=== PATIENT | female | born 1960 | race African-American/Black ===

== ENCOUNTER 2018-12-18 22:13 | Emergency (ER) | payer MEDICAID ==
[~2018-12-18] VITALS: Ht 162.6 cm; Wt 107.5 kg
--- NOTE | 2018-12-18 22:13 | NUR ---
PT SAMANTHA BLS. TAKEN TO BED 6
[2018-12-18 22:20] VITALS: BP 133/79
--- NOTE | 2018-12-18 22:20 | NUR ---
PT BIBA C/O LEFT HIP PAIN. PT AMBULATED, PT STATES PAIN 10/10 LEFT HIP PAIN X3 WEEKS, NON-RADIATING; DENIES TRAUMA OR INJURY; MUSCLE TIGHTNESS TO SIGHT, NO REDNESS OR SWELLING. STRONG DORSAL PEDIAL PUSLES WNL BL. PT IN BED; SAFETY PRECAUTIONS IN PLACE. PENDING ERMD EVAL. PMH: HTN, DM
--- NOTE | 2018-12-18 22:42 | NUR ---
Dr. Han examining patient.
[2018-12-18] MEDS ORDERED: IBUPROFEN 600 MG TAB PO ONE (22:45)
--- NOTE | 2018-12-18 23:15 | NUR ---
BLANKET AND COMFORT MEASURES PROVIDED AT THIS TIME.
--- NOTE | 2018-12-19 | NUR ---
Patient discharged with v/s stable. Written and verbal after care instructions given and explained. Patient alert, oriented and verbalized understanding of instructions. Ambulatory with steady gait. All questions addressed prior to discharge. ID band removed. Patient advised to follow up with PMD. Rx of IBUPROFEN WAS given. Patient educated on indication of medication including possible reaction and side effects. Opportunity to ask questions provided and answered.
[2018-12-19 00:05] VITALS: BP 131/78
--- NOTE | 2018-12-19 00:21 | NUR ---
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
== END 2018-12-19 | disposition home or self-care (01) ==
LOC: MED 22:13
DX: M79.10 Myalgia, unspecified site (principal)
CPT/HCPCS: 99282